=== PATIENT | male | born 1995 | race African-American/Black ===

== ENCOUNTER 2017-06-01 18:18 | Emergency (ER) | payer SELFPAY ==
[~2017-06-01] VITALS: Ht 167.6 cm; Wt 70.3 kg
[2017-06-01 18:57] VITALS: BP 119/70
[2017-06-01] MEDS ORDERED: DIPH25CA58 PO (19:03)
--- NOTE | 2017-06-01 19:03 | PHYS DOC ---
Adult General Chief Complaint Chief Complaint: SKIN PROBLEM [facility] HPI Patient is a 21 year old male presents to the emergency department with complaints of a skin rash on the right forearm and the left side of the neck. Patient reports he was at the [place] one-day prior to the onset of the rash. He does describe to be pruritic. He has no other complaints. Review of Systems Review of Systems Constitutional: Denies fever or chills [] Eyes: Denies change in visual acuity, redness, or eye pain [] HENT: Denies nasal congestion or sore throat [] Respiratory: Denies cough or shortness of breath [] Cardiovascular: No additional information not addressed in HPI [] GI: Denies abdominal pain, nausea, vomiting, bloody stools or diarrhea [] : Denies dysuria or hematuria [] Musculoskeletal: Denies back pain or joint pain [] Integument: Skin rash Neurologic: Denies headache, focal weakness or sensory changes [] Endocrine: Denies polyuria or polydipsia [] Allergies Allergies Allergies Coded Allergies Type Severity Reaction Last Updated Verified No Known Drug Allergies 06/01/17 No Physical Exam Physical Exam Constitutional: Well developed, well nourished, no acute distress, non-toxic appearance. [] HENT: Normocephalic, atraumatic, bilateral external ears normal, oropharynx moist, no oral exudates, nose normal. [] Eyes: PERRLA, EOMI, conjunctiva normal, no discharge. [] Neck: Normal range of motion, no tenderness, supple, no stridor. [] Cardiovascular:Heart rate regular rhythm, no murmur [] Lungs & Thorax: Bilateral breath sounds clear to auscultation [] Abdomen: Bowel sounds normal, soft, no tenderness, no masses, no pulsatile masses. [] Skin: Right upper extremity left-sided neck with a fine papular rash, mild pink in color without induration, no vesicles, no bullae, no pustules. It is pruritic. Back: No tenderness, no CVA tenderness. [] Extremities: No tenderness, no cyanosis, no clubbing, ROM intact, no edema. [] Neurologic: Alert and oriented X 3, normal motor function, normal sensory function, no focal deficits noted. [] Psychologic: Affect normal, judgement normal, mood normal. [] Current Patient Data Vital Signs Vital Signs Date Time Temp Pulse Resp B/P (MAP) Pulse Ox O2 Delivery O2 Flow Rate FiO2 06/01/17 18:57 98.5 60 16 99 Room Air 98.5 EKG EKG [] Radiology/Procedures Radiology/Procedures [] Course & Med Decision Making Course & Med Decision Making Pertinent Labs and Imaging studies reviewed. (See chart for details) [] Dragon Disclaimer Dragon Disclaimer This electronic medical record was generated, in whole or in part, using a voice recognition dictation system. Departure Departure Impression: Primary Impression: Poison oak dermatitis Disposition: HOME, SELF-CARE Condition: STABLE Referrals: NO PCP (PCP) [facility] Patient Instructions: Poison [place] Scripts Diphenhydramine Hcl (BENADRYL) 25 Mg Capsule 50 MG PO Q6HRS Y for itching, #20 CAP Prov: DARA MALDONADO APRN 06/01/17 DARA MALDONADO APRN Jun 01, 2017 19:03
[2017-06-01] MEDS ORDERED: methylPREDNISolone ACETATE 80 MG/ML VIAL. IM ONE (19:15)
== END 2017-06-01 19:23 | disposition home or self-care (01) ==
LOC: ER 18:18
DX: L23.7 Allergic contact dermatitis due to plants, except food (principal)
CPT/HCPCS: 96372; 99283; J1040

== ENCOUNTER 2018-12-31 08:47 | Emergency (ER) | payer SELFPAY ==
[~2018-12-31] VITALS: Ht 167.6 cm; Wt 61.2 kg
[~2018-12-31 08:47] MED LIST: DIPH25CA58 PO
[2018-12-31] MEDS ORDERED: PRED50TA PO (09:12)
[2018-12-31] MEDS ORDERED: DOXY100T PO (09:12)
[2018-12-31] MEDS ORDERED: HYDR25TA PO (09:12)
[2018-12-31] MEDS ORDERED: MELO7.5T29 PO (09:12)
--- NOTE | 2018-12-31 09:12 | PHYS DOC ---
Past Medical History Past Medical History: No Pertinent History Past Surgical History: Appendectomy Alcohol Use: None Drug Use: None Adult General Chief Complaint Chief Complaint: SKIN RASH/ABSCESS HPI HPI Patient is a 23 year old male who presents with a rash on his wrists and feet. This has been present for approximately the past week. They're painful. Patient also notes that he's had a cough and a fever over the same time. No nausea or vomiting. He also notes some dried scaly skin on his testicles. No itching, no rash. No discharge. Patient is sexually active, heterosexual, one partner, no protection. No dysuria or back or flank pain. Pain and fever improved with ibuprofen.[] Review of Systems Review of Systems Constitutional: Denies fever or chills [] Eyes: Denies change in visual acuity, redness, or eye pain [] HENT: Denies nasal congestion or sore throat [] Respiratory: Denies shortness of breath [] Cardiovascular: No additional information not addressed in HPI [] GI: Denies abdominal pain, nausea, vomiting, bloody stools or diarrhea [] : Denies dysuria or hematuria [] Musculoskeletal: Denies back pain or joint pain [] Integument: See history of present illness[] Neurologic: Denies headache, focal weakness or sensory changes [] Endocrine: Denies polyuria or polydipsia [] All other systems were reviewed and found to be within normal limits, except as documented in this note. Allergies Allergies Allergies Coded Allergies Type Severity Reaction Last Updated Verified No Known Drug Allergies 06/01/17 No Physical Exam Physical Exam Constitutional: Well developed, well nourished, no acute distress, non-toxic appearance. [] HENT: Normocephalic, atraumatic, bilateral external ears normal, oropharynx moist, no oral exudates, nose normal. [] Eyes: PERRLA, EOMI, conjunctiva normal, no discharge. [] Neck: Normal range of motion, no tenderness, supple, no stridor. [] Cardiovascular:Heart rate regular rhythm, no murmur [] Lungs & Thorax: Bilateral breath sounds clear to auscultation [] Abdomen: Bowel sounds normal, soft, no tenderness, no masses, no pulsatile masses. [] Skin: Warm, dry, no erythema, multiple flat lesions at the wrist bilaterally, volar aspect. Similar lesions on the ankles. No specific palm or sole involvement. Testicles have scaly skin, no rash, no blue below, no tenderness to palpation, normal male, circumcised, bilateral descended testes without tenderness.. [] Back: No tenderness, no CVA tenderness. [] Extremities: No tenderness, no cyanosis, no clubbing, ROM intact, no edema. [] Neurologic: Alert and oriented X 3, normal motor function, normal sensory function, no focal deficits noted. [] Psychologic: Affect normal, judgement normal, mood normal. [] EKG EKG [] Radiology/Procedures Radiology/Procedures [] Course & Med Decision Making Course & Med Decision Making Pertinent Labs and Imaging studies reviewed. (See chart for details) Moon decision making: Nontoxic patient with rash at the wrists and ankles. Patient denies any recent tick bites however will cover her for [place] spotted fever. Possibility for syphilis exists so treating in the emergency Department with penicillin. No evidence of toxic epidermal necrolysis. No evidence of staph scalded skin syndrome, nor Loya-Pete syndrome.[] Dragon Disclaimer Dragon Disclaimer This electronic medical record was generated, in whole or in part, using a voice recognition dictation system. Departure Departure Impression: Primary Impression: Rash Disposition: 01 HOME, SELF-CARE Condition: IMPROVED Referrals: NO PCP (PCP) Patient Instructions: Rash Additional Instructions: Keep the areas clean and dry. Follow-up with your regular doctor in 2 days. If you do not have regular doctor a list of local clinics will be provided for you. Take the medication as prescribed. Return to the ER if worsening rash, continued fever, or any other concerns. Scripts Prednisone (PREDNISONE) 50 Mg Tablet 50 MG PO DAILY for 7 Days, #7 TAB Prov: WATSON TEJADA DO 12/31/18 Meloxicam (MELOXICAM) 7.5 Mg Tablet 7.5 MG PO DAILY, #20 TAB Prov: WATSON TEJADA DO 12/31/18 Hydroxyzine Hcl (HYDROXYZINE HCL) 25 Mg Tablet 25 MG PO QID, #30 TAB Prov: WATSON TEJADA DO 12/31/18 Doxycycline Hyclate (DOXYCYCLINE HYCLATE) 100 Mg Tablet 100 MG PO BID, #20 TAB Prov: WATSON TEJADA DO 12/31/18 WATSON TEJADA DO Dec 31, 2018 09:12
[2018-12-31] MEDS ORDERED: PENICILLIN G BENZATHINE LA 2,400,000 UNIT/4 ML DISP.SYRIN. IM ONE (09:15)
== END 2018-12-31 09:48 | disposition home or self-care (01) ==
LOC: ER 08:47
DX: R21 Rash and other nonspecific skin eruption (principal); R05 Cough; R50.9 Fever, unspecified; Z90.89 Acquired absence of other organs
CPT/HCPCS: 96372; 99283; J0561